=== PATIENT | male | born 1940 | race Hispanic/Latino ===

== ENCOUNTER 2019-02-05 08:25 | Day surgery (SDC) | payer MEDICARE ==
[2019-02-05] MEDS ORDERED: TRIPLE ANTIBIOTIC TP ONE (10:49)
--- NOTE | 2019-02-05 10:49 | History and Physical Report ---
HISTORY OF PRESENT ILLNESS: A 78-year-old [facility] resident with an underlying history of cerebral palsy, dysphagia, hypertension, prostatic hypertrophy, anxiety, depression, reflux, osteoarthritis. He normally receives nutrition through his PEG tube, which likely has not been functioning well and has been consented for removal and replacement of the PEG tube. He has no known allergies. PHYSICAL EXAMINATION: VITAL SIGNS: His blood pressure is 133/73, pulse is 83, respirations 13. HEENT: Shows no JVD. LUNGS: Clear to auscultation. CARDIOVASCULAR: Normal. ABDOMEN: Soft. He has a PEG tube in place, which appears to be nonfunctioning and has turned black over termite helper use. EXTREMITIES: No pedal edema. NEUROLOGIC: He is alert, but not oriented. ASSESSMENT: Malfunctioning PEG tube, cerebral palsy, poor swallowing function, hypertension, anxiety, depression, reflux, osteoarthritis. PLAN: To remove the PEG tube and replace it with a new replacement tube. [facility]# [id number] JOSEFINA/DILIP
--- NOTE | 2019-02-05 10:55 | Procedure Note ---
Date of procedure: 02/05/19 Pre-op diagnosis: Malfunctioning G-tube Post-op diagnosis: other (Removal and replacement of the G-tube with a 20 Fr tube) Procedure: S/P G-tube (20 Fr) replacement Anesthesia: MAC Surgeon: KADEEM SCHMITZ Estimated blood loss: minimal Pathology: none Condition: stable Disposition: same day (Resume previous feeding and medication per G-tube. Skin mmarking at 3.5 cm.)
--- NOTE | 2019-02-05 11:06 | Operative Report ---
G-TUBE CHANGE INDICATIONS: This is a 78-year-old white male who is a [facility] resident, has an underlying history of cerebral palsy, hypertension and normally receives nutrition through his G-tube, which has lately not been functioning well. The patient has a malfunctioning PEG tube and has brought here for removal of the PEG tube and replacement with a 20-Angolan tube. DESCRIPTION OF PROCEDURE: The procedure was done after getting informed consent from the patient's family. The stomal site was then cleaned and draped in standard fashion. It was then removed by gentle traction. A new 20-Angolan replacement tube was passed through the stoma into the cavity of the stomach. This was then inflated with 10 mL normal saline and the plastic guard was brought into apposition with the anterior abdominal wall. The skin marking was at about 3.5 cm. The stomal site was cleaned and antibiotic ointment was applied. ASSESSMENT: Status post replacement, removal of a malfunctioning G-tube with replacement with a 20-Angolan tube. PLAN: To resume previous feeding and medication through the tube once the [facility]. The patient may be asked to follow up as needed. JOB# [id number] JOSEFINA/DILIP
[2019-02-05 11:47] VITALS: BP 170/89
== END 2019-02-05 08:26 | disposition home or self-care (01) ==
LOC: GIO 08:25
DX: K94.23 Gastrostomy malfunction (principal); I10 Essential (primary) hypertension; K21.9 Gastro-esophageal reflux disease without esophagitis; M19.90 Unspecified osteoarthritis, unspecified site; F32.9 Major depressive disorder, single episode, unspecified; F41.9 Anxiety disorder, unspecified; Z79.899 Other long term (current) drug therapy
CPT/HCPCS: A6250